=== PATIENT | female | born 1980 | race Caucasian/White ===

== ENCOUNTER 2021-07-13 19:33 | Emergency (ER) | payer OTHER ==
[~2021-07-13 19:33] MED LIST: FLEXERIL 10 MG10 MG PO
== END 2021-07-13 21:32 | disposition left against medical advice (07) ==
LOC: ER1 19:33
DX: Z53.21 Procedure and treatment not carried out due to patient leaving prior to being seen by health care provider (principal)

== ENCOUNTER 2022-01-15 18:48 | Emergency (ER) | payer OTHER | END 2022-01-15 20:46 | disposition home or self-care (01) | LOC: ER1 18:48 | DX: S80.12XA Contusion of left lower leg, initial encounter (principal); M25.572 Pain in left ankle and joints of left foot; W22.03XA Walked into furniture, initial encounter; Y92.830 Public park as the place of occurrence of the external cause | CPT/HCPCS: 73610; 73630; 99283 ==